=== PATIENT | female | born 1985 | race Hispanic/Latino ===

== ENCOUNTER 2022-01-07 22:41 | Emergency (ER) | payer OTHER, BC ==
[~2022-01-07] VITALS: Ht 160 cm; Wt 54.0 kg
[2022-01-07 22:44] VITALS: BP 143/84
[2022-01-07] MEDS ORDERED: BIRTH CONTROL PILLS (22:58)
[2022-01-07 23:00] VITALS: BP 131/73
[2022-01-07 23:15] VITALS: BP 122/66
[2022-01-07 23:39] VITALS: BP 128/77
[2022-01-07] MEDS ORDERED: NAPROXEN500 MG PO (23:50)
[2022-01-07 23:59] VITALS: BP 128/77
== END 2022-01-08 00:11 | disposition home or self-care (01) | DRG 552 ==
LOC: ED 22:41
DX: S13.9XXA Sprain of joints and ligaments of unspecified parts of neck, initial encounter (principal); V49.40XA Driver injured in collision with unspecified motor vehicles in traffic accident, initial encounter

== ENCOUNTER 2022-08-23 15:23 | Emergency (ER) | payer BC ==
[~2022-08-23] VITALS: Ht 160 cm; Wt 54.5 kg
[~2022-08-23 15:23] MED LIST: BIRTH CONTROL PILLS; NAPROXEN500 MG PO
[2022-08-23 16:26] VITALS: BP 117/65
[2022-08-23 16:30] VITALS: BP 108/66
[2022-08-23 16:33] LABS: URINE BILIRUBIN - DIPSTICK NEGATIVE (NEGATIVE); URINE BLOOD DIPSTICK LARGE (NEGATIVE); URINE COLOR YELLOW; URINE GLUCOSE - DIPSTICK NEGATIVE (NEGATIVE); URINE KETONE NEGATIVE (NEGATIVE); URINE PROTEIN - DIPSTICK 30 mg/dL (NEG-TRACE); URINE SPECIFIC GRAVITY 1.025
[2022-08-23 16:35] LABS: URINE LEUK ESTERASE SMALL (NEGATIVE); URINE NITRITE - DIPSTICK NEGATIVE (Negative)
[2022-08-23 16:43] LABS: URINE SQUAMOUS EPITHELIAL CELL FEW EPI/hpf (0-FEW); URINE WBC 50-100 WBC/hpf (0-5)
[2022-08-23 16:45] VITALS: BP 104/65
[2022-08-23] MEDS ORDERED: KEFLEX500 MG PO (16:49)
[2022-08-23] MEDS ORDERED: PHENAZOPYRIDIN100 M1 PO (16:53)
[2022-08-23 17:00] VITALS: BP 108/65
[2022-08-23 17:15] VITALS: BP 108/55
[2022-08-23 17:30] VITALS: BP 111/64
== END 2022-08-23 17:33 | disposition home or self-care (01) | DRG 690 ==
LOC: ED 15:23
PROVIDERS: Nurse Practitioner
DX: N39.0 Urinary tract infection, site not specified (principal)